=== PATIENT | female | born 1980 | race Caucasian/White ===

== ENCOUNTER 2016-10-09 03:15 | Inpatient (IN) | payer MEDICAID, OTHER ==
[~2016-10-09] VITALS: Ht 165.1 cm; Wt 99.5 kg
[2016-10-11] MEDS ORDERED: OXYTOCIN 30U/ 0.9% NaCL 500ML 500 ML IV PRN (05:53)
[2016-10-11] MEDS ORDERED: OXYTOCIN 30U/ 0.9% NaCL 500ML 500 ML IV ONE (05:53)
[2016-10-11] MEDS ORDERED: ONDANSETRON 2MG/ML, 2ML IVPush PRN ×2 (06:00→11:30)
[2016-10-11] MEDS ORDERED: FENTANYL PF 100 MCG/2ML IVPush PRN (06:00)
[2016-10-11] MEDS ORDERED: FENTANYL PF 100 MCG/2ML IV PRN (06:00)
[2016-10-11] MEDS ORDERED: CALCIUM CARBONATE 500 MG TAB.CHEW PO PRN ×2 (06:00→12:30)
[2016-10-11] MEDS ORDERED: TERBUTALINE 1 MG/ML, 1ML SQ PRN (06:00)
[2016-10-11] MEDS: PLEASE ENTER ALLERGIES MC SCH ×14 (06:00→12:00)
[2016-10-11] MEDS ORDERED: TERBUTALINE 1 MG/ML, 1ML IVPush PRN ×2 (06:00)
[2016-10-11 06:02] VITALS: BP 134/79
[2016-10-11] MEDS ORDERED: PREN-3 PO (06:08)
[2016-10-11] MEDS ORDERED: OXYTOCIN 30U/ 0.9% NaCL 500ML 500 ML ONE (06:09)
[2016-10-11] MEDS: LACTATED RINGERS 1,000 ML IV SCH ×2 (06:18→09:40)
[2016-10-11 06:44] LABS: HEMATOCRIT 38.4 % (34.6-47.8); HEMOGLOBIN 12.7 g/dL (11.7-16.4); WHITE BLOOD COUNT 6.8 x10^3/uL (3.4-10)
[2016-10-11] MEDS ORDERED: NEWBORN KIT ONE (06:45)
[2016-10-11] MEDS ORDERED: LIDOCAINE 1%, 20ML ONE (06:45)
[2016-10-11] MEDS ORDERED: MISOPROSTOL 200 MCG TABLET ONE (06:45)
[2016-10-11] MEDS ORDERED: FENTANYL/BUPIV./NS/PF 250 ML EPIDCONT ONE (09:38)
[2016-10-11] MEDS ORDERED: BUPIVACAINE 0.25% ONE (09:42)
[2016-10-11] MEDS ORDERED: LIDOCAINE/PF 1.5%-EPI 1:200K, 30ML ONE (09:42)
[2016-10-11] MEDS ORDERED: FENTANYL/BUPIV./NS/PF 250 ML EPIDCONT SCH (11:15)
[2016-10-11] MEDS ORDERED: LACTATED RINGERS 1,000 ML IV SCH ×2 (11:15→11:20)
[2016-10-11] MEDS ORDERED: LACTATED RINGERS 1,000 ML IVBOLUS PRN ×2 (11:30)
[2016-10-11] MEDS ORDERED: NALOXONE 0.4 MG/ML, 1ML IVPush PRN (11:30)
[2016-10-11] MEDS ORDERED: EPHEDRINE 50 MG/ML, 1ML IVPush PRN (11:30)
[2016-10-11] MEDS ORDERED: OXYTOCIN 30U/ 0.9% NaCL 500ML 500 ML IV SCH (12:19)
[2016-10-11] MEDS ORDERED: OXYcodone/APAP 5/325MG TABLET PO PRN ×2 (12:30)
[2016-10-11] MEDS ORDERED: MISOPROSTOL 200 MCG TABLET PO PRN (12:30)
[2016-10-11] MEDS ORDERED: ACETAMINOPHEN 325 MG TABLET PO PRN (12:30)
[2016-10-11] MEDS ORDERED: ONDANSETRON 2MG/ML, 2ML IV PRN (12:30)
[2016-10-11] MEDS: PRENATAL VIT/IRON/FA 1 EACH TABLET PO SCH (12:30)
[2016-10-11 15:02] VITALS: BP 146/92
[2016-10-11 19:58] VITALS: BP 144/87
[2016-10-11] MEDS: DOCUSATE 100 MG CAPSULE PO PRN (20:05)
[2016-10-11] MEDS: IBUPROFEN 600 MG TABLET PO PRN (20:10)
[2016-10-11 20:32] LABS: HEMATOCRIT 37.5 % (34.6-47.8); HEMOGLOBIN 12.6 g/dL (11.7-16.4); WHITE BLOOD COUNT 12.4 x10^3/uL (3.4-10)
[2016-10-12] VITALS: BP 130/84
[2016-10-12] MEDS: IBUPROFEN 600 MG TABLET PO PRN ×2 (02:41→11:34)
[2016-10-12 04:00] VITALS: BP 105/63
[2016-10-12 07:00] VITALS: BP 125/84
[2016-10-12] MEDS: DOCUSATE 100 MG CAPSULE PO PRN (07:57)
[2016-10-12] MEDS: PRENATAL VIT/IRON/FA 1 EACH TABLET PO SCH (07:57)
[2016-10-12] MEDS ORDERED: IBUP-1222 PO (08:49)
== END 2016-10-12 16:30 | disposition home or self-care (01) | DRG 775 ==
LOC: LDIP 10-11 05:50 → 2NW 10-11 14:42
PROVIDERS: ADMIT Obstetrics & Gynecology; ATTEND Obstetrics & Gynecology
PROC: 10E0XZZ Delivery of Products of Conception, External Approach (ICD-10-PCS; principal; 2016-10-11)
PROC: 00HU33Z Insertion of Infusion Device into Spinal Canal, Percutaneous Approach (ICD-10-PCS; 2016-10-11)
PROC: 3E0R3CZ (ICD-10-PCS; 2016-10-11)
DX: O77.0 Labor and delivery complicated by meconium in amniotic fluid (principal); Z37.0 Single live birth; Z3A.40 40 weeks gestation of pregnancy; Z88.0 Allergy status to penicillin
CPT/HCPCS: 36415; 85025; 86850; 86900; J3490; J2590; J3010; J7120